=== PATIENT | male | born 1960 | race Caucasian/White ===

== ENCOUNTER 2017-04-25 13:08 | Emergency (ER) | payer OTHER ==
[~2017-04-25] VITALS: Ht 175.3 cm; Wt 96.0 kg
--- OUTSIDE RECORDS SUMMARY | 2017-04-25 13:28 | External Medical Summary Rpt | CCD ---
Author Author , ОЛЬГА ROLON Address Unknown Phone [email or web address] Immunization Name Date Rout CVX Reac Dose Comm Prov Is Faci e tion ent ider Refu lity Give sed n Infl 10-0 Intr 999 Hist AR No AR uenz 1-20 amus oric a 14 cula al Quad r Info rmat W/Pr ion es - Sour ce Unsp ecif ied
--- OUTSIDE RECORDS SUMMARY | 2017-04-25 13:28 | External Medical Summary Rpt | CCD ---
Author Author Conduent Organization Conduent Address Unknown Phone Unavailable Purpose Continuity of Care Document - through 2016
--- OUTSIDE RECORDS SUMMARY | 2017-04-25 13:28 | External Medical Summary Rpt | CCD ---
Author Author , ОЛЬГА Organization ОЛЬГА Address Unknown Phone [email or web address] Purpose Continuity of Care Document - 07-07-2011 through 2016 Problems Code Diagnosis DOS Provider Status R31.9 Hematuria, 07-07-2011 unspecified K40.90 Unilateral inguinal hernia, without obstruction or gangrene, not specified as recurrent M23.41 Loose body in knee, right knee M25.562 Pain in left knee N52.9 Male erectile dysfunction , unspecified S39.012A Strain of muscle, fascia and tendon of lower back, initial encounter S83.242D Other tear of medial meniscus, current injury, left knee, subsequent encounter S83.282D Other tear of lateral meniscus, current injury, left knee, subsequent encounter Z12.11 Encounter for screening for malignant neoplasm of colon Z12.5 Encounter for screening for malignant neoplasm of prostate
--- OUTSIDE RECORDS SUMMARY | 2017-04-25 13:28 | External Medical Summary Rpt | CCD ---
Author Author , ОЛЬГА ROLON Address Unknown Phone [email or web address] Immunization Name Date Rout CVX Reac Dose Comm Prov Is Faci e tion ent ider Refu lity Give sed n Infl 10-0 Intr 999 Hist MD No MD uenz 1-20 amus oric a 14 cula al Quad r Info rmat W/Pr ion es - Sour ce Unsp ecif ied
--- OUTSIDE RECORDS SUMMARY | 2017-04-25 13:28 | External Medical Summary Rpt | CCD ---
Author Author , ОЛЬГА Organization ОЛЬГА Address Unknown Phone [email or web address] Purpose Continuity of Care Document - 07-07-2011 [...]
--- OUTSIDE RECORDS SUMMARY | 2017-04-25 13:29 | External Medical Summary Rpt ---
Author Author ОЛЬГА Garcia, BALYAZAN [employer] Organization [employer]А [employer] Address Unknown Phone Unavailable Results PSA Screen Observa Value Referen Units Interpr Notes Date tion ce etation Range Total 0.99 No ng/mL No 2008Jan 15 PSA informa informa AUA 2016 tion in tion in Best 12:51 source source Practic AM data data e Stateme nt Guideli fany-Age Adjuste d Referen ce Interva ls:\.br \\.br\A ge Range Whites \. br\ Rosa ns Rosa ns\.br\ __\.br\ \.br\40 -49 years 0-2.5 ng/mL 0-2.0 ng/mL 0-2.0 ng/mL\. br\\.br \50-59 years 0-3.5 ng/mL 0-4.0 ng/mL 0-3.0 ng/mL\. br\\.br \60-69 years 0-4.5 ng/mL 0-4.5 ng/mL 0-4.0 ng/mL\. br\\.br \70-79 years 0-6.5 ng/mL 0-5.5 ng/mL 0-5.0 ng/mL\. br\\.br \\.br\S marito Jerome [facility] are Laborat ory uses the [employer] Total PSA assay, which is approve d as an aid in detecti ng prostat e cancer when used in conjunc tion with digital rectal exam in men 50 years or older and also as an adjunct roselyn test to aid in the managem ent of prostat e cancer patient s. Prostat ic biopsy is require d for the diagnos is of cancer. Values obtaine d with differe nt assay methods should not be used interch angeabl y. Conside r the above as guideli fany only. The risk of prostat e cancer is a continu um across a range of PSA levels, with increas ing risk as the PSA increas es. MRI KNEE LEFT WO CONTRAST Observa Value Referen Units Interpr Notes Date tion ce etation Range EXAMINA No No No No Dec 08 TION: informa informa informa informa 2016 MRI tion in tion in tion in tion in 4:18 PM KNEE source source source source LEFT WO data data data data CONTRAS T\.br\\ .br\MARY E: 12/09/19 4:18 PM\.br\ \.br\HI STORY: Left knee pain.\. br\\.br \COMPAR PERRY: None.\. br\\.br \TECHNI QUE: Multipl ankit, multise quence MR images of the left knee were\.b r\obtai jair\.br \withou t the use of intra-a rticula r or intrave nous contras t.\.br\ \.br\FI NDINGS: \.br\\. br\Meni sci: There is a displac ed inferio r leaflet flap tear of the medial\ .br\men iscal\. br\post erior horn/eliza dy. There is a 7 mm flap in the menisco tibial gutter space\. br\as\. br\seen on series 5, coronal image 25. This is superim posed on intrasu bstance \.br\de generat ion of the medial meniscu s. There are mild degener ative changes of\.br\ the\.br \mud temperer ior root attachm ent but no focal discont inuity is identif ied and\.br \there is\.br\ no extrusi on. There is a focal free edge tear of the lateral menisca l body\.b r\witho ut displac ement.\ .br\\.b r\Ligam ents: The anterio r and posteri or cruciat e ligamen ts are intact. The\.br \medial \.br\co llatera l ligamen t is intact. The lateral support ing Novoa' s includi ng\.br\ the\.br \ilioti bial band, lateral collate ral ligamen t, biceps femoris tendon are\.br \intact .\.br\T he poplite al tendon is intact. \.br\\. br\Osse ous structu res and articul ations: Subtle reactiv e marrow edema is\.br\ noted in\.br\ the tibial plateau deep to the torn medial meniscu s. There is no fractur e\.br\o r\.br\d epressi on of the articul ar surface . There is no marrow infiltr ation. There\. br\is\. br\foca l chondra l desicca tion and fissuri ng at the central weightb earing\ .br\asp ect of\.br\ the medial femoral condyle . There is subtle inhomog eneity of the lateral \.br\ti bial\.b r\plate au articul ar surface but no focal defect is identif ied.\.b r\\.br\ The extenso r mechani sm is intact. The distal quadric eps tendon is slightl y\.br\t hickene d and there is mild edema in the quadric eps fat pad. Multifo jose\.br \trochl ear chondra l blister ing and fissuri ng is noted in the central \.br\po rtion.\ .br\Sub tle subchon dral bone changes are compati ble with full-th ickness \.br\pe netrati on\.br\ in this area measure s approxi mately 2 cm superio r to inferio r x 1.6 cm\.br\ transve rse. There is also focal chondra l fissuri ng in the medial patella r\.br\f acet\.b r\witho ut subchon dral bone change. \.br\\. br\Ther e is a small joint effusio n and low level synovit is. Minimal fluid is\.br\ noted\. br\and Palma's cyst opening without distent ion. There is nonspec ific\.b r\prepa tellar\ .br\sof t tissue edema.\ .br\\.b r\IMPRE SSION:\ .br\\.b r\1. There is a displac ed inferio r leaflet flap tear of the medial menisca l\.br\b rosetta/pos terior horn with torn tissue in the menisco tibial gutter space.\ .br\\.b r\2. Focal radial free edge tear of the lateral menisca l body.\. br\\.br \3. Intact cruciat e and collate ral ligamen ts.\.br \\.br\4 . Grade 3 medial femoral and 3/4 patello femoral chondro sis as above.\ .br\\.b r\5. Small joint effusio n and low level synovit is.\.br \\.br\6 . Nonspec ific prepate llar soft tissue edema. There is mild thicken ing of\.br\ the\.br \distal quadric eps tendon and edema in the quadric eps fat pad.\.b r\ Vit D 25-OH Observa Value Referen Units Interpr Notes Date tion ce etation Range Vitamin 44.1 30.0 - ng/mL No INTERPR Sep 9 D-25 120.0 informa ETIVE 2013 OH tion in INFORMA 10:36 source TION: AM data Vitamin D, 25-Hydr oxy\.br \\.br\< 20 ng/mL Deficie ncy\.br \20 - 29 ng/mL Insuffi ciency\ .br\30 - 80 ng/mL Optimum Level\. br\>120 ng/mL Possibl e Toxicit y\.br\\ .br\NOT E: For infants and childre n up to 17 years of age, the optimum level is >=20 ng/mL. This assay accurat clarisa quantif ies the sum of vitamin D3, 25-Hydr oxy and vitamin D2, 25-Hydr oxy. PSA Screen Observa Value Referen Units Interpr Notes Date tion ce etation Range Total 0.97 No ng/mL No 2008Jan 31 PSA informa informa AUA 2013 tion in tion in Best 7:34 AM source source Practic data data e Stateme nt Guideli fany-Age Adjuste d Referen ce Interva ls:\.br \\.br\A ge Range Whites \. br\ Rosa ns Rosa ns\.br\ __\.br\ \.br\40 -49 years 0-2.5 ng/mL 0-2.0 ng/mL 0-2.0 ng/mL\. br\\.br \50-59 years 0-3.5 ng/mL 0-4.0 ng/mL 0-3.0 ng/mL\. br\\.br \60-69 years 0-4.5 ng/mL 0-4.5 ng/mL 0-4.0 ng/mL\. br\\.br \70-79 years 0-6.5 ng/mL 0-5.5 ng/mL 0-5.0 ng/mL\. br\\.br \\.br\S marito Queenie [facility] are Laborat ory uses the [employer] Total PSA assay, which is approve d as an aid in detecti ng prostat e cancer when used in conjunc tion with digital rectal exam in men 50 years or older and also as an adjunct roselyn test to aid in the managem ent of prostat e cancer patient s. Prostat ic biopsy is require d for the diagnos is of cancer. Values obtaine d with differe nt assay methods should not be used interch tang Lundy r the above as guideli fany only. The risk of prostat e cancer is a continu um across a range of PSA levels, with increas ing risk as the PSA increas es. B12/ FA Observa Value Referen Units Interpr Notes Date tion ce etation Range CYANOCO 457 211 - pg/mL No No Sep 8 BALAMIN 946 informa informa 2014 .TRUE tion in tion in 11:44 source source PM data data Folic 18.27 4.50 - ng/mL No No Sep 9 Acid 37.30 informa informa 2014 Lvl tion in tion in 12:20 source source AM data data Testost Observa Value Referen Units Interpr Notes Date tion ce etation Range Testost 425 193 - ng/dL No No Sep 8 erone 740 informa informa 2013 Lvl tion in tion in 8:33 PM source source data data Lipid Scr Observa Value Referen Units Interpr Notes Date tion ce etation Range Cholest 234 <=200 mg/dL High < 200 Sep 8 huyen 2013 [Percen 8:29 PM tile] Desirab le\.br\ 200 - 239 Borderl ine High\.b r\>= 240 High TRIGLYC 114 <=150 mg/dL No < 150 Sep 8 ERIDES. informa 2014 TOTAL tion in Normal\ 8:29 PM source .br\150 data - 199 Borderl ine High\.b r\200 - 499 High\.b r\ >= 500 Very High CHOLEST 48 >=40 mg/dL No > 60 Sep 8 EROLS.I informa 2014 N HDL tion in Optimal 8:29 PM source \.br\40 data - 60 Accepta ble\.br \ < 40 Low LDL 163 <=100 mg/dL High < 100 Sep 8 Calcula 2014 ree 8:29 PM Optimal \.br\10 0 - 129 Near or above optimal \.br\13 0 - 159 Borderl ine High\.b r\160 - 189 High\.b r\ >= 190 Very High TSH Observa Value Referen Units Interpr Notes Date tion ce etation Range Thyrotr 1.500 0.270 - mcIU/mL No No Sep 8 opin 4.200 informa informa 2013 [Units/ tion in tion in 8:29 PM volume] source source in data data Serum or Plasma CT ABDOMEN PELVIS W WO CONTRAST Observa Value Referen Units Interpr Notes Date tion ce etation Range TEXT COMBINE No No No No Sep [address] informa informa informa informa 2011 IS ABDOMEN tion in tion in tion in tion in 11:27 BATTERY AND source source source source AM CONTRAS data data data data T-ENHAN SHARON CT PELVIS WITH MULTIPL ANARREC ONSTRUC TIONS FOR CTUROGR APHY, 02/04/20 12HISTO RY: Hematur ia.FIND INGS: Initial noncont rast imaging perform ed through the abdomen .Immedi ate and delayed imaging through the abdomen and pelvis then obtaine d after adminis tration 75 mL Isovue- 370.Mul tiplana r reconst ruction s perform ed for CT urograp hy. Oral contras t alsoadm inister ed. Nocompa rison studies .There is a 2 mm intrare nal calculu s right kidney. No additio nal renalca lculi seen. Kidneys enhance symmetr ically. There is no mass lesion. The pelvica lyceal systems and ureters appearn ormal bilater ally. No obstruc tion or hydrone phrosis . The bladder isunrem arkable .The liver, spleen and pancrea s are normal. The gallbla dder isunrem arkable . Adrenal s arenorm al.Ghazal rointes tinal structu res are unremar kable. Normal appendi x isvisua lized. The seminal vesicle s and prostat e are normal. No pelvic mass or fluid.I MPRESSI ON: 2 mm nonobst ructive right intrare nal calculu s. Otherwi seunrem arkable examina tionwit h CT urograp hy.
--- OUTSIDE RECORDS SUMMARY | 2017-04-25 13:29 | External Medical Summary Rpt ---
[...] ng/mL 0-5.0 ng/mL\. 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 br\\.br \\.br\S marito Queenie [facility] are Laborat ory uses the [employer] Total PSA assay, which is [...]
[2017-04-25] MEDS ORDERED: KEFLEX500 M1 PO (13:38)
--- NOTE | 2017-04-25 13:39 | Emergency Room Report ---
History of Present Illness Time Seen by [id number] Presenting Problem in Triage Pt arrived:Walked Presenting Problem:PT SHOT A NAIL INTO HIS LEFT FOREARM AND REMOVED. Onset of symptoms date/time:04/25/1707/11/1219 or onset unknown for: Treatment Prior to Arrival: REMOVED BY SELF APPRAISAL COORDINATOR Provided by:SELF Sepsis Risk Assessment: Temp: 97.7 B/P: 142/90 MAP: 107 Pulse: 73 Resp: 18 Recent fever? N Clinical Suspician of Infection? N Mental Status: 1 - Regular (Normal Baseline) Sepsis Risk:Low Sepsis Risk Have you (or family members/close friends) recently traveled outside the [place]? N If Yes, where/when: Have you had exposure to infectious disease within the past month? TB? Other? Specify: Comment The patient's shot a nail into his LEFT forearm, entering on the flexor surface. It did not go through and through. He pulled it out. He says it felt like it scraped the bone. He does not have any new numbness or weakness of his hand. He does have chronic numbness of his LEFT index finger from previous injury, but no new numbness. ALLERGIES Coded Allergies: No Known Allergies (04/25/17) History Medical History Immunization Hx Ped.Immunizations UTD Yes DT/Tetanus 5-10 Years Ago Surgical Hx Previous Surgery?N Social History Smoking Hx Smoker: Never Smoker Tobacco: No Review of Systems All Other Systems Reviewed and Negative Musculoskeletal see HPI Psychiatric/Neurological denies numbness, denies weakness Physical Exam Vital Signs Vital Signs Date Time Temp Pulse Resp B/P Pulse O2 O2 Flow FiO2 Ox Delivery Rate 04/25 1355 97.7 73 18 142/90 97 04/25 1313 97.7 73 18 142/90 97 General Appearance no apparent distress Respiratory Status No: respiratory distress. Cardiovascular regular rate/rhythm, normal peripheral pulses Neurologic alert, sensation of all digits of LEFT hand and intact except for chronic decreased sensation of index finger, normal motor function of LEFT upper extremity, hand, fingers, normal pulses and capillary refill, puncture wound present on the flexor aspect of distal third of his LEFT forearm. No visible foreign bodies or contamination. No hematoma present. No edema. Muscle compartment soft. Medical Decision Making LABS/Meds/Orders Pt receiving controlled substance in ED? No Results/Orders Current Medication Orders Sig/Yevgeniy Start time Last Medication Dose Route Stop Time Status Admin Cephalexin 0 .STK-MED ONE 04/25 1352 DC Monohydrate PO Cephalexin 500 MG ONCE ONE 04/25 1345 DC 04/25 Monohydrate PO 04/25 1346 1354 Diphtheria/Pertussis/ 0.5 ML ONCE ONE 04/25 1345 DC 04/25 Tetanus Vacc IM 04/25 1346 1352 Diphtheria/Pertussis/ 0 .STK-MED ONE 04/25 1320 DC Tetanus Vacc IM Orders Procedure Date/time Status GEN NSG/PT REQ (NOT FOR MEDS!) 04/25 1337 Active FOREARM-LT 04/25 1313 Active XRAY/CT/US XRAY/CT/US XRAY forearm Comment X-ray interpreted by Cesar Rodriguez M.D.: area of increased density and distal ulna,? Bone island. No fracture or foreign body seen. Departure Departure Disposition DC Home or Self Care(routine) Clinical Impression Primary Impression: Puncture wound of forearm Qualifiers: Encounter type: initial encounter Laterality: left Qualified Code: S51.832A - Puncture wound without foreign body of left forearm, initial encounter Condition STABLE Referrals MIKE MAR (Family) Patient Instructions DI for Puncture Wound Additional Instructions Ibuprofen for pain. Elevate your forearm for the next 2 days to prevent/reduce swelling. Additional instructions for EXTREMITY PAIN: See her physician in 3-5 days for a wound check. Return to an emergency department immediately if you have uncontrollable pain, fever, loss of feeling or inability to move your injured extremity. Prescriptions Current Visit Scripts Cephalexin (Keflex 500MG) 500 MG PO QID #40 [facility] ED Critical Care Critical Care No at [id number]
[2017-04-25 13:55] VITALS: BP 142/90
--- NOTE | 2017-04-28 08:46 | RADIOLOGY REPORT PS360 ---
FOREARM-LT Ordering Physician: Cesar Rodriguez MD Patient Age: 56 years: Male HISTORY: SHOT NAIL THROUGH FOREARM WHILE WORKING TECHNIQUE: AP and lateral left forearm COMPARISON :No previous FINDINGS No fracture evident. The radius and ulna intact no radiopaque foreign body in soft tissues from the nail injury. Focal area lof sclerotic osseous density the shaft of ulna just distal to mid point. Eccentric location along the anterior cortex old left measuring up to 2 cm length X 4 mm AP. Most likely benign features such as might be seen with an old remote injury or sclerotic bone island..... No expansion or cortical nor endosteal irregularity associated.. No periosteal reaction. Apparently This is not the area of the nail injury either from ER review. Suggest a follow-up 2 view of the forearm within 2-3 months; or earlier if if pain in this area.. Any old films could if available to confirm stability here. IMPRESSION: Left forearm. No acute fracture or findings. . Area of increased bone density/sclerotic bone anterior shaft ulna-most likely a small benign sclerotic bone feature; but would benefit from follow-up 2 view left forearm 2-3 months; or sooner if pain in this area.
== END 2017-04-25 13:55 | disposition home or self-care (01) ==
LOC: ER 13:08
DX: S51.832A Puncture wound without foreign body of left forearm, initial encounter (principal)